=== PATIENT | male | born 1940 | race Caucasian/White ===

== ENCOUNTER 2020-08-19 19:48 | Inpatient (IN) | payer OTHER ==
[~2020-08-19] VITALS: Ht 184 cm; Wt 91.9 kg
[2020-08-19] MEDS ORDERED: ASPIRIN325 PO (22:13)
[2020-08-19] MEDS ORDERED: PLAVIX 75 MG TA75 MG PO (22:14)
[2020-08-19] MEDS ORDERED: COLACE100 MG PO (22:25)
[2020-08-19] MEDS ORDERED: HYDROCHLOROTHIA25 M2 PO (22:26)
[2020-08-19] MEDS ORDERED: OMEPRAZOLE 20 M20 M1 PO (22:27)
[2020-08-19] MEDS ORDERED: FLOMAX0.4 MG PO (22:27)
[2020-08-19] MEDS ORDERED: KLOR-CON 10 ER10 MEQ PO (22:28)
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
[2020-08-20 07:54] VITALS: BP 127/61
--- NOTE | 2020-08-20 13:39 | NUR ---
Completed assessment and tx plan.
--- NOTE | 2020-08-20 17:30 | NUR ---
Assumed care 0700. Patient extremely hard of hearing. He slept until noon. AM meds given late with Dr. Brunson's OK. Pt. tolerated meds well. Most were crushed in applesauce except for the Potassium-given whole. Voided a measured total from day pdbrl=456 cc. He needs to stand to void to avoid incontinence. He uses walker plus two people to stand, third to hold urinal and support patient. At about 1715 he stated he was a diabetic and usually took a pill in the AM and a pill in the pM before dinner for DM. He could not remember the name of the pill. Dr. Maxwell was notified with orders. His AC dinner Blood sryoa=224; he did not qualify for the insulin ordered. When told Insulin was ordered, he protested stating that he had never taken Insulin before. His son Geovanni was called who did not know his father's meds. He said he had spoken with Dr. Brunson and that he had the list. EKG was done=NSR. No voiced SI/HI/AH/VH. No delusional/paranoid talk. No psychiatric behaviors this shift.
[2020-08-20 19:59] VITALS: BP 113/56
[2020-08-21 01:56] VITALS: BP 113/56
--- NOTE | 2020-08-21 02:02 | NUR ---
Assumed care on 08/20/20 @ 19:15, seated in the day room, Cooperates with assessment, WNL. Compliant with meds, taking crushed in applesauce. FSBS 249, 4 U of insulin provided. Cooperative with insulin administration. Transferred to bed x2 assist. Patient reports that the wounds on lower extremities are due to bad knees. Poor understanding of condition noted. Bed in low position, bed alarm set. Will continue to monitor for safety and comfort.
--- NOTE | 2020-08-21 07:25 | EKG ---
[facility] [place] [address] [place] [address] ELECTROCARDIOGRAM REPORT Name: JOCELIN BURROWS [facility] IN M.R.#: [id number] Admission: 08/19/20 Attend Phys: Navneet Brunson DO Discharge: Date of : 42 Report #: [id number] THIS REPORT FOR: cc: FAM - No family physician/PCP FAM - No family physician/PCP Bruce Atkins MD [facility] ~ THIS REPORT FOR: //name// [facility] Test Date: 2020-08-20 Test Time: 14:39:11 Pat Name: JOCELIN BURROWS Department: [facility]: [facility] Gender: M Vocational Coordinator: ROMARIO : 1940 Requested By: Navneet Brunson Order Number: [id number] MD: Bruce Atkins Measurements Intervals [place] Rate: 79 P: 8 [place]: 143 QRS: 40 QRSD: 149 T: -8 QT: 421 QTc: 483 Interpretive Statements Sinus rhythm Right bundle branch block No previous ECG available for comparison Electronically Signed On 08-21-2020 7:25:08 CDT by Bruce Atkins [email or web address] <ELECTRONICALLY SIGNED> By: Bruce Atkins MD, FACC 08/21/20 0725 1439 1439 Bruce Atkins MD, [facility] /EPI
[2020-08-21 07:46] VITALS: BP 133/72
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
--- NOTE | 2020-08-21 11:27 | NUR ---
WOUND CONSULT; THE PATIENT HAS S/S CONSISTANT WITH VENOUS INSUFFICENCY. THE PATIENT HAS SKIN CHANGES BILATERALLY, THE SKIN IS INDURATED. THE RLE HAS NO WOUNDS THE LLE HAS A LIRGE SCAB LIKE ARE THAT IS RAISED AND TENDER TO TOUCH, DISTAL TO THIS IS A WOUND THAT IS CONSISTANT WITH A SHEARING TRAUMA. RECOMMENDSTIONS; -[address] BRETT MUNOZ FOR THE WOUNDS. -2 FOR NOW A SILVER FOAM TO THE LEFT MACHADO AND PAINT THE LARGE PROXIMAL SCAB-LIKE AREA WITH BETADINE AND USE TUBIGRIPS BILATERAL LE'S DISCUSSED WITH RN
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
[2020-08-21 19:31] VITALS: BP 126/68
[2020-08-22 04:39] VITALS: BP 126/68
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
--- NOTE | 2020-08-22 08:16 | NUR ---
PT SITTING IN DINING ROOM FOR BREAKFAST WITH SPEECH THERAPY. PT WAS ABLE TO TAKE MEDS IN YOGART AND THEN DID SPIT SOME OUT. PT WAS ENCOURAGED TO TAKE PILLS IN YOGART AND DRINK DOWN WITH ORANGE JUICE. PT GOT ALL MEDS DOWN. PT NEEDED ASSISTANCE WITH FEEDING. PT HAS SPECIAL EVANS HOSE SOCKS ON BILATERALY.
[2020-08-22 08:25] VITALS: BP 109/63
[2020-08-22 09:19] VITALS: BP 109/63
--- NOTE | 2020-08-22 11:20 | NUR ---
PT WAS WORKING WITH PHYSICAL THERAPY. PT NOT ABLE TO STAND WITH X2 ASSIST. PT WAS TRYING TO REFUSE FINGER STICK BY BALLING HAND INTO A FIST, NEEDED ASSISTANCE FOR BLOOD SUGAR CHECK BY HOLDING HIS FINGER.
--- NOTE | 2020-08-22 16:16 | NUR ---
PT SITTING OUT IN DINING ROOM AND STARTED JERKING TO ARMS. ASKED PT WHY HE WAS SHAKING PT STATED WHAT. PT SEEMS COLD. PUT BLANKET ON PT AND PT SEEMS TO HAVE STOPPED SHAKING TO ARMS.
--- NOTE | 2020-08-22 16:41 | NUR ---
NO SIGNS OF SHAKING AT THIS TIME.
--- NOTE | 2020-08-22 16:41 | NUR ---
KAJAL spoke with Pt's Son/DPOA, Geovanni Montanez [phone]. SW gave an update on the Pt. Geovanni stated the Pt is in LTC at [facility] however Geovanni does not like the placement. Geovanni also expressed a concern about [facility] not calling him when they took the Pt to the ER. Geovanni requested SW to assist in finding a new placement. KAJAL informed that since the Pt has a placement the plan will be to d/c the Pt back to [facility]. KAJAL offered to send out referrals however was clear that this would not be an issue that would hold up or stop the Pt from d/c back to [facility]. Geovanni insisted that the Pt had only been at [facility] a short while and was only sent there because the Pt did not qualify for Rehab. Geovanni informed Pt is medicaid pending SW offered emotional support to Geovanni. KAJAL was sure to clearly reiterate that d/c plan back to [facility]. KAJAL sent referrals to [facility] and [facility] per Geovanni's request as a courtesy. KAJAL set a family meeting for 08/25/2020 @ 2 pm
--- NOTE | 2020-08-22 17:29 | NUR ---
FED PT DINNER AND HE ATE 100% OF DINNER. PT ALSO TOOK HIS PROTONIX WITHOUT ANY ISSUES.
[2020-08-22 19:35] VITALS: BP 130/63
--- NOTE | 2020-08-23 05:13 | NUR ---
Assumed pt's care this pm shift. Pt was in the dayroom at time of assessment. Alert. Disoriented x4. Pt unable to verbalize much words to nursing. Pt took meds crushed in pudding. Pt slept well this shift. Covid test done this am as precaution due to positive case on the unit. Fall precaution in place. Will continue to monitor.
[2020-08-23 07:27] VITALS: BP 108/66
--- NOTE | 2020-08-23 11:00 | NUR ---
ASSUMED CARE 0700. Denies SI/HI/AH/VH. No goal other than to have a cold drink of regular water-on thickened liquids with supervision, crushed meds in pudding/yogurt/applesauce. Due to Covid + test will be discharged from [facility] to another floor. Currently in room supervised with room open. Got up before lunch to void. Voided about 250 cc, emptied urinal and kept emptying urinal when nurse repeatedly asked him not to do so.
--- NOTE | 2020-08-23 12:26 | NUR ---
Refusing pureed foods of chicken, carrots, mashed potatoes and gravy. Is consuming iced tea w/sweetener thickened. Tends to keep eyes closed when trying to eat. Has latent choking a short time after consuming iced tea. Does not understand rationale for pureed food. Pictures and dressings not yet done due to need for PI documentation and to get moved to other unit.
[2020-08-23] MEDS ORDERED: HALOPERIDOL 1 MG1 MG PO (12:41)
[2020-08-23] MEDS ORDERED: MIRALAX17 GM PO (12:42)
[2020-08-23] MEDS ORDERED: PROTONIX 20 MG20 M1 PO (12:42)
--- NOTE | 2020-08-23 12:52 | NUR ---
Continues to refuse lunch pureed food. Drank 100 cc tea thickened. Said he was feeling SOB. Dozed off to sleep after refusing lunch for third time with nurse assist.
[2020-08-23 19:56] VITALS: BP 115/68
--- NOTE | 2020-08-23 20:49 | NUR ---
Assumed pt's care this pm shift. Pt was in his room, isolating due positive covid test today. Another test done today and resulted this night and remained positive. Meds given per emar. Pt to transfer down different unit. Awaiting call to give report.
--- NOTE | 2020-08-24 08:54 | NUR ---
08/23/2020 SW completed SLUMS with Pt. Pt scored 12 out of 30.
--- NOTE | 2020-08-24 08:57 | NUR ---
08/23/2020 ALONZO attempted to call [facility], , to discuss discharge. Alonzo left a message for the social and political studies professor, admissions dept, and the application administrator, as of this note noone has returned the call.
== END 2020-08-23 21:12 | disposition short-term general hospital (02) | DRG 885 ==
LOC: SBH
PROVIDERS: ADMIT Psychiatry & Neurology Psychiatry; ATTEND Psychiatry & Neurology Psychiatry
DX: F29 Unspecified psychosis not due to a substance or known physiological condition (principal); E43 Unspecified severe protein-calorie malnutrition; U07.1 COVID-19; I11.0 Hypertensive heart disease with heart failure; I50.32 Chronic diastolic (congestive) heart failure; N40.0 Benign prostatic hyperplasia without lower urinary tract symptoms; E11.9 Type 2 diabetes mellitus without complications; K57.90 Diverticulosis of intestine, part unspecified, without perforation or abscess without bleeding; E78.5 Hyperlipidemia, unspecified; G47.00 Insomnia, unspecified; M19.90 Unspecified osteoarthritis, unspecified site; Z79.899 Other long term (current) drug therapy
CPT/HCPCS: 10880

== ENCOUNTER 2020-08-23 18:55 | Inpatient (IN) | payer OTHER ==
[~2020-08-23] VITALS: Ht 175.3 cm; Wt 89.1 kg
[~2020-08-23 18:55] MED LIST: ASPIRIN325 PO; COLACE100 MG PO; FLOMAX0.4 MG PO; HALOPERIDOL 1 MG1 MG PO; HYDROCHLOROTHIA25 M2 PO; KLOR-CON 10 ER10 MEQ PO; MIRALAX17 GM PO; OMEPRAZOLE 20 M20 M1 PO; PLAVIX 75 MG TA75 MG PO; PROTONIX 20 MG20 M1 PO
[2020-08-23 23:02] VITALS: BP 129/72
--- NOTE | 2020-08-24 02:30 | NUR ---
ADMIT PT ADMITTED FROM [facility] UNIT BROUGHT TO UNIT VIA WHEELED RECLINER TOOK TO TO TRANSFER TO BED. ORIENTED TO ROOM CALL LIGHT SYSTEM AND POC. PT COOPERATIVE WITH CARES. SCABBED OVER WOUNDS TO BOTH LOWER EXTREMETIES NOTED PICTURES OBTAINED CLEANSED WITH SALINE XEROFORM AND KERLIX APPLIED NO DRAINAGE OR ORDOR NOTED. REMAINDER OF SKIN IS CLEAN DRY INTACT. AWAITING ORDERS.
[2020-08-24 04:33] VITALS: BP 128/69
[2020-08-24 07:20] VITALS: BP 117/71
[2020-08-24 08:35] LABS: HEMATOCRIT 49.1 % (42.0-52.0); HEMOGLOBIN 16.1 gm/dL (14.0-18.0); MCH 27.2 pg (26.0-34.0); MCHC 32.8 g/dL (28.0-37.0); MCV 82.9 fL (80.0-100.0); PLATELET COUNT 185 thou/uL (150-400); RBC 5.92 mil/uL (4.50-6.00); RDW 16.1 % (10.5-14.5); WBC 7.7 thou/uL (4.0-11.0)
[2020-08-24 09:13] LABS: ALBUMIN 3.7 g/dL (3.4-5.0); CALCIUM 9.6 mg/dL (8.5-10.1); CREATININE 1.2 mg/dL (0.7-1.3); TOTAL BILIRUBIN 1.1 mg/dL (0.2-1.0); TOTAL PROTEIN 7.7 g/dL (6.4-8.2)
[2020-08-24 09:33] LABS: ABSOLUTE NEUTROPHILS 5.8 thou/uL (1.4-8.2); PLATELET ESTIMATE NORMAL
[2020-08-24 09:34] LABS: ANISOCYTOSIS SLIGHT
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
[2020-08-24 15:29] VITALS: BP 177/101
--- NOTE | 2020-08-24 16:14 | NUR ---
INITIAL ASSESSMENT: KAJAL reviewed chart and spoke with nursing and attending physician. Pt was discharged from 5S [facility] unit and admitted to 3W due to COVID-19. Pt is in Enhanced Isolation. Pt is afebrile and not requiring O2. Discussed case with [facility] KAJAL. Pt was admitted to [facility] from [facility]. Pt normally uses a cane/walker at the facility. Pt had tried to elope from the facility. KAJAL spoke with pt's son, Geovanni, via phone. Introduced role of KAJAL. Pt's son states pt was at [facility] for only a few days. Family interested in an alternate facility, but is agreeable with returning to [facility]. Pt's son states pt has Medicare Part A. KAJAL faxed clinical info to [facility] and left voice message for their quality management coordinator to provide update and discuss pt now being COVID positive. Awaiting call back at this time. KJAAL is following to assist as needed with discharge planning.
[2020-08-24 16:27] VITALS: BP 110/68
[2020-08-24 19:20] VITALS: BP 144/78
--- NOTE | 2020-08-25 00:46 | NUR ---
P[ATIENT ASSESSED AND IS ALERT X 1-2. SKIN WARM AND DRY. RESP EVEN AND UNLABORED. IS SLOW TO RESPOND AT TIMES. TRIES TO CLIMB OUT OF BED AT TIMES. REMAINS ON BEDREST. TAKES HONEY LIQUID MEDS CRUSHED MED ANBD TAKEN WELL. HAS SOME REDDNESS TO BOTTOM BUT NO OPEN AREAS SEEN. MTURN Q 2 HOURS IS HE WILL LET THE STAFF. ADSKING FOR HIS COOKIES. ALSO HAS A ABRASION ON LEFT BOTTOM. NO OPE AREAS SEEN. NO SI/SH/HI NOTED. BED ALARM ON. MLEFT HAND SL FLUSHES WELL. OMN ROOM AIR. VOIDS PER URINAL. INCONT AT TIMES. SMALL SMEAR BM NOTED WITRH GAS. SLEEPING WELL NOW. CONT PLAN OF CARE. REMAINS IN ISOLATION FOR + COVID. IS A MAX ASSIST.
--- NOTE | 2020-08-25 00:52 | NUR ---
BILATERAL LEGS WRAPPED BUT PATIENT IS UNWRAPPING THEM AT TIMES HAD TO REWRAP HIS LEGS AT TIMES.
[2020-08-25 05:04] VITALS: BP 133/63
[2020-08-25 08:07] VITALS: BP 156/73
--- NOTE | 2020-08-25 14:13 | NUR ---
PT CARE ASSUMED AT 0700, PT ALERT AND ORIENTED X2, CONFUSED AND FORGETFUL. PT DENIES ANY PAIN, NAUSEA AND VOMITTING. PT IS ON ROOM AIR, NO SIGNS OF DISTRESS NOTED. FALL RECAUTIONS IN PLACE, VSS. CALL LIGTH AND TABLE WITHIN REACH, BED AT LOWEST LEVEL WITH ALARM ON. PT REPOSITIONED EVERY 2 HOURS AND NEEDED. PT PROGRESSING TOWARDS CARE WILL CONTINUE TO MONITOR.
--- NOTE | 2020-08-25 15:32 | NUR ---
KAJAL reviewed chart and spoke with nursing and attending physician. Pt remains in Enhanced Isolation due to COVID-19. Pt is afebrile and not requiring O2. Pt is from [facility]. KAJAL spoke with Mica, dental hygienist mobile coordinator at the facility to discuss requirements for pt to be readmitted due them (COVID test requirements). Mica to discuss with her clinical team. No weekend discharge planned. KAJAL is following to assist as needed with discharge planning.
[2020-08-25 16:32] VITALS: BP 153/75
[2020-08-25 19:48] VITALS: BP 157/98
[2020-08-26 04:58] VITALS: BP 164/83
[2020-08-26 07:31] VITALS: BP 116/59
--- NOTE | 2020-08-26 07:33 | NUR ---
ASSUMED CARE AT 1900, ASSESSMENT COMPLETED. PT IRRITABLE ABOUT EXTERNAL CATHETER, SAYING "THIS TUBE IS A PRACTICAL JOKE." REFUSED TO LAY FURTHER BACK IN BED TO TAKE PRESSURE OFF BACK SIDE, TRIED TO TURN SIDE TO SIDE W/PILLOW BUT PT ALSO COMPLAINED ABOUT THAT. IRRITABLE ABOUT HS MEDS, NOT WANTING "MORE TO EAT." LARGE BRUISES NOTED ON HIP AND BUTTOCKS WELL RED/EXCORIATION, APPLIED BARRIER CREAM. CONGESTED COUGH BUT DENIES SOB. THIS AM YELLING AND POORLY REDIRECTABLE. NO OTHER CONCERNS, SHIFT REPORT GIVEN AT 0700.
--- NOTE | 2020-08-26 13:26 | NUR ---
PT CARE ASSUMED AT 0700, PT ALERT AND ORIENTED X3, CONFUSED AT TIMES AND IMPULSIVE. PT DENIES ANY PAIN, NAUSEA AND VOMITTING. PT IS ON ROOM AIR, NO SIGNS OF DISTRESS NOTED. BILATERAL EXTREMITY WOUND DRESSING CHANNGE. FALL PRECAUTIONS IN PLACE. CALL LIGHT AND TABLE WITHIN REACH. BED AT LOWEST LEVEL WITH ALARM ON. WILL CONTINUE TO MONITOR
[2020-08-26 15:37] VITALS: BP 139/62
[2020-08-26 19:59] VITALS: BP 143/88
[2020-08-27 03:55] VITALS: BP 163/85
--- NOTE | 2020-08-27 06:21 | NUR ---
ASSUMED CARE AT 1900. PT MORE AGREEABLE W/ TAKING MEDS THIS SHIFT COMPARED TO PREV SWITCHBOARD OPERATOR HELPER. KEPT ASKING FOR ICE WATER, BUT AGREED TO DRINK THICKENED WATER ONCE BROUGHT TO HIM. PT VERY DROWSY OVERNIGHT AND DECLINED TURNS MUCH OF NIGHT. NO OTHER CONCERNS, WILL CONTINUE TO MONITOR.
[2020-08-27 06:35] LABS: HEMATOCRIT 51.3 % (42.0-52.0); HEMOGLOBIN 16.9 gm/dL (14.0-18.0); MCH 27.5 pg (26.0-34.0); MCHC 32.9 g/dL (28.0-37.0); MCV 83.5 fL (80.0-100.0); RBC 6.14 mil/uL (4.50-6.00); RDW 15.6 % (10.5-14.5); WBC 6.7 thou/uL (4.0-11.0)
[2020-08-27 06:45] LABS: CALCIUM 10.3 mg/dL (8.5-10.1); CREATININE 1.3 mg/dL (0.7-1.3); POTASSIUM 3.3 mmol/L (3.5-5.1)
[2020-08-27 08:58] VITALS: BP 145/82
--- NOTE | 2020-08-27 15:51 | NUR ---
PT CARE ASSUMED AT 0700, PT ALERT AND ORIENTED X2, MORE COPERATIVE TODAY WITH CARE. PT CONTINUES TO HAVE LOW APPETITE, PT ENCOURAGE TO EAT BUT CONTINUES TO REFUSE. PT IS INCONTINENT, CHANGED FREQUENTLY. FALL PRECAUTIONS IN PLACE. CALL LIGHT AND TABLE WITHIN REACH . BED AT LOWEST LEVEL WITH ALARM ON. PT SON CALLED AND UPDATED ABOUT PT CARE. DENIES ANY NEEDS KELLY, WILL CONTINUE TO MONITOR.
[2020-08-27 17:45] VITALS: BP 122/71
[2020-08-27 19:26] VITALS: BP 146/80
[2020-08-28 03:40] VITALS: BP 126/76
[2020-08-28 03:46] VITALS: BP 126/16
--- NOTE | 2020-08-28 04:30 | NUR ---
Took over care of pt. after 2300. Sound asleep upon initial assessment. Once he woke up he frequently ask for iced water. Honey thick liquids provided. He later asked when is breakfast and requested for 2% milk and ice cream. Explained to him he is on honey thick and can't have ice cream at this time but gave him other choices. Tolerating room air well. Cont. on enhanced precaution ,afebrile. Assisted to reposition with legs up on the pillow. Bed alarm on. He has been calm and cooperative. Dressing intact on lower extremities.
[2020-08-28 06:30] VITALS: BP 143/78
[2020-08-28 15:13] VITALS: BP 121/73
--- NOTE | 2020-08-28 15:40 | NUR ---
SW reviewed chart and spoke with nursing and attending physician. Pt remains in Enhanced Isolation due to COVID-19. Pt is afebrile and not requiring O2. KAJAL left voice message for the admissions dept at [facility], where pt is a LTC resident, to determine their requirements for pt to return to the facility. KAJAL is following to assist as needed with discharge planning.
[2020-08-28 19:16] VITALS: BP 104/66
[2020-08-29 03:42] VITALS: BP 138/78
[2020-08-29 07:24] VITALS: BP 149/88
--- NOTE | 2020-08-29 07:59 | NUR ---
2 PERSON ASSIST FOR TRANSFERRING FROM CHAIR TO BED.PLEASANTLY CONFUSED.ON HONEY THICKENED LIQUID AND TOLERATING WELL.BED ALARM ON FOR SAFETY.POC CONTINUED.
--- NOTE | 2020-08-29 14:10 | NUR ---
ASSUMED PATIENT CARE THIS AM AT APPROXIMATELY 0700. PATIENT IS AWAKE ALERT, SLOW TO RESPOND, ORIENTED TO SELF, PLACE. DISORIENTED TO TIME AND SITUATION THIS AM. O2 SAT STABLE ON ROOM AIR, FURTHER ASSESSMENT CHARTED, MEDS CHARTED, PATIENT ABLE TO GET OUT OF BED TO BEDSIDE CHAIR WITH ASSIST X2, REMAINED IN CHAIR FOR MAJORITY OF SHIFT. TOLERATING ONLY SMALL PORTIONS OF MEALS. EATING ONLY DESSERTS FROM TRAY. ALL SAFETY PRECAUTIONS IN PLACE.
[2020-08-29 15:45] VITALS: BP 126/75
--- NOTE | 2020-08-29 16:05 | NUR ---
KAJAL reviewed chart and spoke with nursing and attending physician. Pt remains in Enhanced Isolation due to COVID-19. Pt had repeat COVID test yesterday and it is positive. Pt is afebrile and not requiring O2. KAJAL spoke with pt's son, Geovanni, via phone to provide update and discuss discharge plan. Geovanni is agreeable with pt returning to [facility]. KAJAL faxed clinical info/COVID test results to the facility and left voice message for Mica in admissions. Awaiting input from facility as to when they would be able to accept pt back. KAJAL is following to assist as needed with discharge planning.
[2020-08-29 19:28] VITALS: BP 141/85
--- NOTE | 2020-08-29 22:09 | NUR ---
PT RESTING IN BED WATCHIGN TV. PT ATTEMPTING TO HOLD CUP AND SPILLED. PT ASKED FOR ASSISTANCE WITH COVERS. PT COMPLIANT WITH VS ASSESSMENT AND MEDICATION. PT VERBALIZED WANTING REG ICE WATER NOT HONEY THICKENED LIQUIDS. BLE LEG WRAPS INTACT. BARRIER CREAM TO COCCYX. BED ALARM ON.
--- NOTE | 2020-08-29 23:56 | NUR ---
PT BEING TRANSFERRED TO [facility]. PT HAD ALL OF HIS BELONGINGS RETURNED TO HIM. REPORT BEING GIVEN AT THE BEDSIDE.
== END 2020-08-30 00:08 | DRG 177 ==
LOC: 3W 18:55
PROVIDERS: ADMIT Hospitalist; ATTEND Hospitalist
DX: U07.1 COVID-19 (principal); E43 Unspecified severe protein-calorie malnutrition; F23 Brief psychotic disorder; I50.30 Unspecified diastolic (congestive) heart failure; F01.51 Vascular dementia, unspecified severity, with behavioral disturbance; E78.5 Hyperlipidemia, unspecified; E11.9 Type 2 diabetes mellitus without complications; M19.90 Unspecified osteoarthritis, unspecified site; G47.00 Insomnia, unspecified; N40.0 Benign prostatic hyperplasia without lower urinary tract symptoms; K57.90 Diverticulosis of intestine, part unspecified, without perforation or abscess without bleeding; I11.0 Hypertensive heart disease with heart failure; R45.1 Restlessness and agitation; I65.29 Occlusion and stenosis of unspecified carotid artery; Z68.29 Body mass index [BMI] 29.0-29.9, adult; Z79.82 Long term (current) use of aspirin; Z79.899 Other long term (current) drug therapy
CPT/HCPCS: 10080; 10879

== ENCOUNTER 2020-08-29 20:33 | Inpatient (IN) | payer OTHER ==
[~2020-08-29] VITALS: Ht 175.3 cm; Wt 79.4 kg
[2020-08-30 01:50] VITALS: BP 138/76
--- NOTE | 2020-08-30 01:50 | NUR ---
[facility] PT WAS AGGRESSIVE AT FACILITY HE LIVES IN. PT REMAINS ALERT TO SELF, WEAK, TWO PERSON TRANSFER, INCONTINENT OF B&B. MED HX BLE CELLULITUS, METABOLIC ENCEPHALOPATHY, DM, CHF, OA. PT HAD RECENT FALLS AT HIS NURSING FACILITY, WITH L BRUISE ON L HIP, SCRATCH ON R BUTTOCK AND BLE ARE WRAPPED IN KERLIX. ADMISSION WOUND PICTURES IN CHART. SON NOTIFIED OF PT [facility]ING [facility]. PT RECEIVED HIS HS MEDS PRIOR TO [facility]ING [facility]. BED ALARM ON.
--- NOTE | 2020-08-30 06:20 | NUR ---
08-30-20 RECEIVED REPORT AND CARE TRANSFERRED 0230 PT SUPINE IN BED RESTING WITH EYES CLOSED, VSS, RR EVEN AND NONLABORED ON RA. BI-LAT DRESSING, CLEAN, DRY AND INTACT. ZERO S/S OF ACUTE DISTRESS, PT WILL CONTINUE TO BE MONTIOR PER [facility] PROTOCOL.
[2020-08-30 14:44] VITALS: BP 132/74
--- NOTE | 2020-08-30 15:53 | NUR ---
KAJAL spoke with Pts son/DPOA, Johanne Montanez. Johanne has requested a letter to enact the DPOA. KAJAL informed Dr. Flanagan of the request. KAJAL will follow up
--- NOTE | 2020-08-30 15:55 | NUR ---
KAJAL sent a referral to [facility]
--- NOTE | 2020-08-30 17:29 | NUR ---
1630 RESUMMED CARE FROM OVERNIGHT SHIFT THIS AM, BACK IN ROOM LYING IN BED QUIET. PATIENT IS AN ASSIST TIMES TWO IN BESSIE CHAIR PATIENT WAS SOMEWHAT AGITATED WHEN TRANSFERRING TO BESSIE CHAIR. PATIENT ATE HALF OF BREAKFAST SPIT MEDICATION CRUSHED IN OATMEAL OUT. I CALLED DR TOLLIVER AND HE ORDERED HALDOL 2.5 IF PATIENT REFUSES MEDICATION. PATIENTS ABDOMEN SOFT ROUND BOWEL SOUNDS PRESENT LUNGS CLEAR. PATIENT ORIENTED TO SELF ONLY CONFUSED UNABLE TO TELL YOU ABOUT SI/HI/AH/VH AT PRESENT. PATIENT SLEEPS OF AN ON IN BESSIE CHAIR PATIENT WAS AMBULATORY BEFORE BEING TRANSFERRED TO MEDICAL FLOOR. PATIENT NOT STABLE ON FEET AT PRESENT. WILL CONTINUE TO MONITOR PATIENT FOR SAFETY AND BEHAVIORS.
--- NOTE | 2020-08-30 17:47 | NUR ---
1630 RESUMMED CARE FROM OVERNIGHT SHIFT THIS AM, PATIENT IN ROOM QUIET. NURSING STAFF ASSISTED PATIENT INTO BESSIE CHAIR TO EAT BREAKFAST IN DAYROOM. PATIENT ATE BREAKFAST TOOK MEDICATION CRUSHED IN OATMEAL. PATIENT IS ORIENTED TO SELF ONLY. PATIENTS ABDOMEN SOFT ROUND BOWEL SOUNDS PRESENT LUNGS HAS RALES. PATIENT UNABLE TO TELL YOU ABOUT SI/HI/AH/VH AT PRESENT DUE TO COGNITIVE DISORDER. PATIENT SON CALLED AND SPOKE WITH MICROSOFT ACCESS DEVELOPER AND I GOT CONSENT FOR TREATMENT AND HOSPITAL STAY. PATIENT REFUSED HIS [address] TOLLIVER ORDERED HALDOL HALDOL 2.5 IM IF PATIENT REFUSES MEDICATION. WILL CONTINUE TO MONITOR PATIENT FOR SAFETY AND BEHAVIORS.
[2020-08-30 19:30] VITALS: BP 126/79
[2020-08-30 23:56] VITALS: BP 132/74
--- NOTE | 2020-08-31 03:01 | NUR ---
Assumed care of patient this pm shift. Patient sitting in mileu during assessment. Patient alert and oriented to self and situation. Patients affect appears flat. Patient refused medications this shift. Patient is considered a falls risk. Patient ambulates via wheelchair. Vital signs are stable. No acute distress noted at this time. We will continue to monitor per hospital policy and procedure.
[2020-08-31 07:00] VITALS: BP 122/65
--- NOTE | 2020-08-31 08:15 | H ---
[facility] [place] [address] [place] [address] HISTORY AND PHYSICAL Name: JOCELIN BURROWS Room #: 527A-A ADM IN M.R.#: [id number] Admission: 08/30/20 Attend Phys: Navneet Brunson DO Discharge: Date of : 42 Report #: [id number] THIS REPORT FOR: cc: JEAN - No family physician/PCP FAM - No family physician/PCP Navneet Brunson DO ~ CC: Navneet Brunson [facility] physician/PCP DATE OF SERVICE: 08/30/2020 INPATIENT PSYCHIATRIC EVALUATION ATTENDING PHYSICIAN: Navneet Brunson DO ATG JAVA DEVELOPER: Jabier Marti MD REASON FOR ADMISSION: Major neurocognitive disorder with behavioral disturbance, COVID-19 positive status. Of note, the patient was seen by tele video today in the dining room. He is a very poor historian and gave minimal information, so most of the items were taken from chart review. Also of note, the patient had previously been on our unit under my care about a week ago before being sent to the medical floor due to his COVID-19 status. HISTORY OF PRESENT ILLNESS: A 80-year-old man who was [facility]. At that time, he was sent out from the [facility] to [facility] and then to us. He had only been at [facility] about 2 days. He has had frequent falls, general debility. He was evidently grossly psychotic at [facility] on the Psychiatric Unit. The patient also has had psychotic manifested signs and symptoms of dementia, was treated accordingly and then we had the COVID status interrupt things. The patient, on the medical floor, was being treated with Haldol 1.5 mg 3 times a day, increase that to 2 mg 3 times a day. Today, the patient gave full history, additional information from previous history and physical on him. REVIEW OF SYSTEMS: Not able to obtain. PAST MEDICAL HISTORY: Include BPH, carotid stenosis, diabetes, diverticulosis, diastolic heart failure, hyperlipidemia, hypertension, insomnia, osteoarthritis, and venous insufficiency. ALLERGIES: No known allergies. SOCIAL HISTORY: Able to be obtained poorly. [facility] [address] [place] [address] HISTORY AND PHYSICAL Name: JOCELIN BURROWS Room #: 527A-A ADM IN [facility]#: [id number] Admission: 08/30/20 Attend Phys: Navneet Brunson, Discharge: Date of : 42 Report #: [id number] done at [facility] was negative. Left hip was negative for fractures. LABORATORY DATA: [facility] for this gentleman, glucose was 264 just before lunch today. Hematology from 08/27/2020 is as follows: White count 6.7, H and H 16.9 and 51.3, platelet count 186. Chemistries: Sodium 140, potassium 3.3, chloride 100, bicarbonate 30, anion gap 10, and BUN 52, creatinine 1.3, GFR 63, glucose 198, calcium 10.3 on 08/27/2020. Albumin is normal at 3.7, ALT 28, AST 38, total bilirubin 1.1. COVID-19 PCR serology was positive on the 08/23/2020, repeat was positive on the 08/23/2020, positive on 08/24/2020 and positive on 08/28/2020, so he is consistently positive. No microbiology to review. PHYSICAL EXAMINATION: VITAL SIGNS: Temperature 36.9, pulse 73, respirations 84, BP 132/74, O2 sat 97%. MUSCULOSKELETAL: Gait not tested, seated in a chair, unkempt. MENTAL STATUS EXAMINATION: This is a well-developed, ill-appearing male, appearing older than stated age. Attention limited. Concentration limited. Speech slow and intermittently slurred. Thought process is linear and very limited. Thought content, poverty of thought. Mood and affect would be constricted, congruent. Denied SI or HI. Denied auditory, visual, or tactile hallucinations. He is oriented to person. I do not think he got day of the week; I believe, he got the august correct. Memory known to be impaired. Insight impaired, judgment impaired. Fund of knowledge below average. FORMULATION: A 80-year-old readmitted for major neurocognitive disorder, COVID-19 positive status, history of psychosis. PLAN: Continue to evaluate and stabilize. Scheduled Haldol increased to 2 mg 3 times a day. Continue tamsulosin 0.4 mg p.o. daily. Continue Lovenox 40 mg subcutaneous at bedtime, Haldol IM backup to 2.5 mg if he refuses p.o.. Continue zinc sulfate 200 mg p.o. daily, thiamine 200 mg p.o. daily, potassium chloride 10 mEq p.o. daily, hydrochlorothiazide 100 mg p.o. daily, Plavix 75 mg p.o. daily, aspirin 81 mg p.o. daily, ascorbic acid 500 mg p.o. daily, omeprazole 40 mg p.o. b.i.d., he is on an insulin sliding scale, which probably can be discontinued. Blood sugars remain good but he did have 260 number today, not sure why he did not get insulin. STRENGTHS: He is insured, has family support from sonTee. [address] [address] HISTORY AND PHYSICAL Name: JOCELIN BURROWS [place] Room #: 527A-A [facility] IN ..#: [id number] Admission: 08/30/20 Attend Phys: Navneet Brunson DO Discharge: Date of : 42 Report #: [id number] WEAKNESSES: Advancing age, having a neurodegenerative disorder, and some comorbidities. <ELECTRONICALLY SIGNED> By: Navneet Brunson DO 08/31/20 0815 [id number] Navneet Brunson DO /nt
--- NOTE | 2020-08-31 14:15 | NUR ---
ALONZO spoke with Jeremiah, , at [facility]. Jeremiah stated they would accept the Pt back COVID+. However asked that Pt not have haldol. ALONZO provided an update on the Pt. Alonzo will continue to follow this Pt.
--- NOTE | 2020-08-31 14:40 | NUR ---
KAJAL recieved a message from Majo ,[phone], from [facility]. Majo informed that the Pt is a a particpate on the [facility]. Majo asked that clinical notes be sent daily. Majo asked that clinical notes be faxed daily. Also if Pt is can be transfered to the [facility] when stable. If Pt needs to be transferred a call will need to be made to the transfer nurse team [phone]
[2020-08-31 18:14] VITALS: BP 122/65
--- NOTE | 2020-08-31 18:16 | NUR ---
ASSUMED CARE AT 0700 THIS MORNING. PT. GOTTEN UP INTO RECLING CHAIR. HE ATE PART OF HIS BREAKFAST, BUT REFUSED LUNCH AND SUPPER. PT. SLEPT THROUGH THE BULK OF THE DAY. HE BECAME ANGRY WHEN HE WAS AWAKENED. HE STATED THE QUESTIONS CONFUSED HIM. HE WAS TAKEN TO THE BATHROOM 3 TO 4 TIMES TODAY. NO ACTING OUT BEHAVIORS NOTED.
--- NOTE | 2020-09-01 05:37 | NUR ---
Assumed care of pt @ 1900. Pt calm et cooperative this shift. Took medications crushed in pudding without difficulty. Ambulates with assistance of pamela-chair. VSWNL. Health assessment with no abnormalities at present time. Denies SI/HI/AVH at present time. Currently resting in pamela-chair in dayroom with eyes closed. Will continue to monitor per protocol.
[2020-09-01 08:48] VITALS: BP 124/75
--- NOTE | 2020-09-01 09:45 | NUR ---
Assumed care 0700. Yelling I want ice water numerous times. Given meds in unsweetened applesauce/crushed. Tries to take off his t-shirt--gives no reason why he is doing this. Oriented to person only. Leg wraps intact.
--- NOTE | 2020-09-01 11:37 | NUR ---
KAJAL recieved a call from Jeremiah at [facility] concerning d/c of Pt. Jeremiah informed the state came into the facility and will not allow them to take ne admits or current residence back until they are in compliance with COVID regulations. Jeremiah stated on Friday she may have more direction from the State on how to proceed allowing residence back in.
--- NOTE | 2020-09-01 11:40 | NUR ---
Pt will d/c to [facility] on 09/01/2020. Pt will be transported via [facility].
[2020-09-01] MEDS ORDERED: ZINC SULFATE 2220 MG PO (12:29)
[2020-09-01] MEDS ORDERED: VITAMIN B-1100 M2 PO (12:30)
[2020-09-01] MEDS ORDERED: VITCB500GO PO (12:30)
--- NOTE | 2020-09-01 12:30 | NUR ---
Patient remains in bed for isolation purposes. Slight expiratory sound/questionable wheeze right upper lobe. No c/o pain. No indicators or voiced SI/HI. Yelled out loud a few times for some ice water. Does not initiate conversation to staff except for ice water and is incontinent and needs changing. Keeps his eyes closed most of the time. He was refusing to eat his lunch stating he did not want to eat. Alternatives were declined. Photos of legs and dressing changes were not done before arrival of transportation.
--- NOTE | 2020-09-01 13:45 | NUR ---
Patient discharged from unit 1345 along with another patient to the same facility of [facility] with papers. Patient was cooperative in transfer to cart and wearing mask.
--- NOTE | 2020-09-01 14:21 | NUR ---
SW D/C NOTE SW sent via encrypted email to Linda Hughes with [facility] pt's discharge docs and DA [address]. KAJAL will file docs in pt's hospital file. No other needs for SW team to address at this time.
--- NOTE | 2020-09-01 14:30 | NUR ---
Addendum to discharge note: Patient report was called to nurse Cailin of [facility]. On subsequent call to Cailin Radiology Physician was given message for Cailin (who could not be reached by phone) to let her know their pharmacy could not accept this nurse's phone orders for meds due to the facility not having admitted this patient to their system yet and the facility would need to fax over the orders to the pharmacy.
--- NOTE | 2020-09-03 21:04 | D ---
[facility] [place] [address] [place] [address] DISCHARGE SUMMARY Name: JOCELIN BURROWS Room #: 527A-A [facility] IN .R.#: [id number] Admission: 08/30/20 Attend Phys: Navneet Brunson DO Discharge: 09/01/20 Date of : 42 Report #: [id number] THIS REPORT FOR: cc: JEAN - Tri family physician/PCP FAM - No family physician/PCP Navneet Brunson DO ~ THIS REPORT FOR: //name// CC: Navneet PENA physician/PCP DATE OF SERVICE: 09/01/2020 INPATIENT PSYCHIATRIC DISCHARGE SUMMARY ATTENDING PSYCHIATRIST: Navneet Brunson DO HEALTH PLAN ADVISOR AT: Jabier Marti MD DISCHARGE DIAGNOSIS: Major neurocognitive disorder, 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 SECONDARY DIAGNOSIS: Unspecified psychosis, resolved. ADDITIONAL DIAGNOSIS: COVID-19 positive. OTHER MEDICAL COMORBIDITIES: Diabetes mellitus type 2, diastolic heart failure, carotid stenosis, hyperlipidemia, and hypertension. DISCHARGE PLAN: The patient is discharging to the [facility] due to being COVID-19+, also attend physical therapy. Psychiatric and medical care to be provided by receiving facility. DISCHARGE DIET: The patient has a discharge diet, which includes 2200 calorie diabetic diet, mechanical chopped, only thickened liquids due to some dysphagia. DISCHARGE MEDICATIONS: Are as follows: Aspirin 325 mg oral daily for heart protection, Plavix 75 mg p.o. daily for heart protection, hydrochlorothiazide 100 mg p.o. daily for hypertension, tamsulosin 0.4 mg oral daily for BPH, potassium chloride 10 mEq p.o. daily for potassium replacement due to hydrochlorothiazide, polyethylene glycol 17 g oral daily in 8 ounces of water for bowel motility, omeprazole 40 mg oral twice a day on an empty stomach half hour before breakfast and dinner. DISCHARGE LABORATORY LIST: On 08/27/2020, white count 6.7, platelet count 186, H and H 16.9 and 51.3. Chemistry most recently on 08/27/2020 with sodium 140, [facility] [employer] [place] [address] DISCHARGE SUMMARY Name: MARKOSJOCELIN Belle Room #: 527A-A [facility] IN [facility].#: [id number] Admission: 08/30/20 Attend Phys: Navneet Brunson DO Discharge: 09/01/20 Date of : 42 Report #: [id number] potassium 3.3, chloride 100, bicarbonate 30, anion gap 10, BUN 52, creatinine 1.3, estimated GFR 53, calcium 10.3, albumin is 3.7. COVID-19 PCR serology was positive on 08/23/2020, again positive on 08/23/2020, 08/24/2020, and 08/28/2020. REASON FOR ADMISSION: The patient had been down on 3 after being COVID positive on the [facility] from a prior admission. He was readmitted due to the COVID-19 outbreak and for continued management. HOSPITAL COURSE: The patient's Haldol was discontinued as long-term care facility had requested not being on scheduled Haldol and that was not necessary for his management as he has a quite advanced dementia and his activity level has decreased and he is no longer psychotic. Condition at discharge was stable. He was seen with televideo device today. PHYSICAL EXAMINATION: VITAL SIGNS: Today, temperature 36.2, pulse 109, respirations 20, BP 141/85, O2 sat 98%. MENTAL STATUS EXAMINATION: A well-developed, seated in Ange chair, completely nonverbal, but said it was Friday when it was Friday and is anxious to be discharged. Well-developed, ill-appearing frail male, appearing older than stated age. Attention limited. Concentration limited. Speech slow, verbally spontaneous. mood/affect= congruent, constricted Thought process linear and limited. Thought content, rather poverty of thought. Some psychomotor retardation. Denied SI or HI. Denied auditory, visual, or tactile hallucinations. Memory not formally tested. Insight limited. Judgment impaired. Fund of knowledge well below average. Last EKG was done on 08/20/2020, showed sinus rhythm, right bundle-branch block, QTc 483 miliseconds. PROGNOSIS: Guarded. <ELECTRONICALLY SIGNED> By: Navneet Brunson DO 09/03/204 1834 56 Navneet Brunson DO /nt
== END 2020-09-01 13:30 | DRG 56 ==
LOC: SBH
PROVIDERS: ADMIT Psychiatry & Neurology Psychiatry; ATTEND Psychiatry & Neurology Psychiatry
DX: G30.9 Alzheimer's disease, unspecified (principal); F02.81 Dementia in other diseases classified elsewhere, unspecified severity, with behavioral disturbance; U07.1 COVID-19; I11.0 Hypertensive heart disease with heart failure; I50.32 Chronic diastolic (congestive) heart failure; F23 Brief psychotic disorder; N40.0 Benign prostatic hyperplasia without lower urinary tract symptoms; E11.9 Type 2 diabetes mellitus without complications; K57.90 Diverticulosis of intestine, part unspecified, without perforation or abscess without bleeding; E78.5 Hyperlipidemia, unspecified; M19.90 Unspecified osteoarthritis, unspecified site; G47.00 Insomnia, unspecified; I65.29 Occlusion and stenosis of unspecified carotid artery
CPT/HCPCS: 10880